=== PATIENT | male | born 1960 | race Caucasian/White ===

== ENCOUNTER 2025-03-12 15:38 | Emergency (ER) | payer MEDICARE, MEDICAID ==
[~2025-03-12] VITALS: Ht 172.7 cm; Wt 91.0 kg
[2025-03-12 15:51] VITALS: TEMP 36.9; O2SAT 98
[2025-03-12] MEDS ORDERED: IBUP-2030 MT (19:22)
[2025-03-12] MEDS ORDERED: CEPH500C2 MT (19:22)
[2025-03-12 19:55] VITALS: BP 140/65; PULSE 62; RESP 18; O2SAT 98
[2025-03-12] MEDS: KETOROLAC 30MG/ML VIAL IM ONE (19:55)
== END 2025-03-12 20:15 | disposition home or self-care (01) ==
LOC: ER 15:38
DX: M79.89 Other specified soft tissue disorders (principal); E11.9 Type 2 diabetes mellitus without complications; Z96.659 Presence of unspecified artificial knee joint; W19.XXXA Unspecified fall, initial encounter; Y93.89 Activity, other specified; Y92.89 Other specified places as the place of occurrence of the external cause; Y99.8 Other external cause status
CPT/HCPCS: 99284; 93971; 73590; 73630; 96372; J1885

== ENCOUNTER 2025-06-05 15:15 | Emergency (ER) | payer MEDICARE, MEDICAID ==
[~2025-06-05] VITALS: Ht 167.6 cm; Wt 93.0 kg
[~2025-06-05 15:15] MED LIST: CEPH500C2 MT; IBUP-2030 MT
[2025-06-05 15:18] VITALS: O2SAT 99
[2025-06-05 15:46] VITALS: BP 135/5; PULSE 81; RESP 16; TEMP 36.6; O2SAT 98
[2025-06-05 16:05] LABS: BASOPHILS % 1.5 % (0.0-2.0); EOSINOPHILS % 2.2 % (0.0-5.0); HEMATOCRIT. 42.2 % (42.0-52.0); HEMOGLOBIN. 14.6 g/dL (14.0-18.0); LYMPHOCYTES % 36.4 % (20.0-50.0); MEAN PLATELET VOLUME 9.0 fl (7.4-10.4); MONOCYTES % 9.4 % (2.0-8.0); NEUTROPHILS % 50.5 % (40.0-76.0); PLATELET 266 x1000/uL (130-400); RED BLOOD CELL COUNT 4.84 mill/uL (4.7-6.1); RED CELL DISTRIBUTION WIDTH 13.7 % (11.6-14.6)
[2025-06-05] MEDS: BACITRACIN/POLYMYXIN B SULFATE OINT 15GM TOP ONE (16:30)
[2025-06-05 16:31] LABS: CREATININE 1.1 mg/dL (0.6-1.3); UREA NITROGEN BLOOD 16 mg/dL (9-23)
[2025-06-05 16:33] LABS: ASPARTATE AMINOTRANSFERASE 21 IU/L (<34); BILIRUBIN DIRECT 0.2 mg/dL (<=3.0); BILIRUBIN TOTAL 0.8 mg/dL (0.1-1.0); PROTEIN TOTAL 7.7 g/dL (6.0-8.3)
[2025-06-05 16:55] LABS: CLARITY URINE CLEAR (CLEAR); COLOR URINE YELLOW (YELLOW); GLUCOSE URINE NEGATIVE (NEGATIVE); KETONES URINE NEGATIVE (NEGATIVE); LEUKOCYTE ESTERASE URINE NEGATIVE (NEGATIVE); NITRITE URINE NEGATIVE (NEGATIVE); OCCULT BLOOD URINE NEGATIVE (NEGATIVE); PH URINE 6.5 (4.5-8.0); PROTEIN URINE NEGATIVE (NEGATIVE); SPECIFIC GRAVITY URINE 1.007 (1.005-1.030); UROBILINOGEN URINE 0.2 E.U./dL (0.2-1.0)
[2025-06-05] MEDS ORDERED: DOXY100T2 MT (16:55)
[2025-06-05] MEDS: DOXYCYCLINE HYCLATE 100MG CAPSULE PO ONE (17:00)
== END 2025-06-05 17:37 | disposition home or self-care (01) ==
LOC: ER 15:15
DX: I87.311 Chronic venous hypertension (idiopathic) with ulcer of right lower extremity (principal); E11.9 Type 2 diabetes mellitus without complications; I87.1 Compression of vein; Z96.659 Presence of unspecified artificial knee joint; R06.02 Shortness of breath; W01.0XXA Fall on same level from slipping, tripping and stumbling without subsequent striking against object, initial encounter; Y93.9 Activity, unspecified; Y92.89 Other specified places as the place of occurrence of the external cause; Y99.9 Unspecified external cause status
CPT/HCPCS: 36415; 80048; 80076; 81003; 83880; 85025; 93970; 99284